=== PATIENT | female | born 1995 | race Two or more races ===

== ENCOUNTER 2017-02-23 16:32 | Emergency (ER) | payer MEDICAID ==
[~2017-02-23] VITALS: Ht 162.6 cm; Wt 88.5 kg
[2017-02-23 17:10] LABS: Urine Bilirubin Negative (Negative); Urine Blood 1+ /uL (Negative); Urine Color Yellow (Yellow); Urine Glucose Normal (Normal); Urine Ketone 4+ (Negative); Urine Mucus FEW (None Seen); Urine Nitrite Negative (Negative); Urine RBC 1 /hpf (0 - 4); Urine Squamous Epithelial Cell FEW /hpf (<5)
[2017-02-23 17:38] LABS: Basophils # (auto) 0 uL; Basophils % (auto) 0.1 % (0.0-2.0); CONDITION Y; Eosinophils # (auto) 0 uL; Eosinophils % (auto) 0.2 % (0.0-7.0); Hematocrit 43.4 % (36.0-46.0); Hemoglobin 14.8 g/dL (12.2-16.2); Lymphocytes # (auto) 1.5 uL; Lymphocytes % (auto) 10.7 % (10.0-50.0); Mean Corpuscular Hemoglobin 28.8 pg (28.0-32.0); Mean Corpuscular Volume 84.7 fL (80.0-100.0); Monocytes # (auto) 0.5 uL; Monocytes % (auto) 3.5 % (0.0-12.0); Neutrophils # (auto) 11.8 uL; Neutrophils % (auto) 85.5 % (37.0-80.0); Platelet Count (auto) 296 10^3/uL (140-450); Red Cell Distribution Width 12.7 % (11.6-16.0); White Blood Cell 13.9 10^3/uL (4.4-10.8)
[2017-02-23 18:02] LABS: Albumin 3.9 g/dL (3.4-5.0); BUN/Creatinine Ratio 23.5; Calcium 8.7 mg/dL (8.5-10.1); Potassium 3.5 mmol/L (3.5-5.1)
[2017-02-23 18:05] LABS: Bilirubin, Total 0.4 mg/dL (0.2-1.0); Total Protein 7.7 g/dL (6.4-8.2)
[2017-02-23] MEDS ORDERED: ONDANSETRON HCL 4 MG/2 ML VIAL IV ONE (21:15)
[2017-02-23] MEDS ORDERED: SODIUM CHLORIDE 0.9% 1,000 ML IV ONE (21:15)
[2017-02-23] MEDS ORDERED: KETOROLAC TROMETH 30 MG/ML 1ML VIAL IV ONE (21:15)
[2017-02-23] MEDS ORDERED: cefTRIAXone 1GM/50ML D5W 50 ML IV ONE (21:35)
[2017-02-23] MEDS ORDERED: cefTRIAXone SOD 1,000 MG VL IV ONE (21:45)
[2017-02-23 22:20] VITALS: BP 117/70
== END 2017-02-23 22:35 | disposition home or self-care (01) ==
LOC: ER 16:35
DX: N30.01 Acute cystitis with hematuria (principal); E86.0 Dehydration
CPT/HCPCS: 36415; 70450; 80053; 81001; 85025; 93005; 96361; 96374; 96375; 99285; J0696; J1885; J2405; J7030

== ENCOUNTER 2023-07-31 03:16 | Emergency (ER) | payer MEDICAID ==
[~2023-07-31] VITALS: Ht 160 cm; Wt 105.0 kg
[2023-07-31 04:29] LABS: Basophils # (auto) 0.1 10 ^3/uL (0-0.2); Basophils % (auto) 0.6 % (0.0-2.0); Eosinophils # (auto) 0.3 10 ^3/uL (0-0.8); Eosinophils % (auto) 2.5 % (0.0-7.0); Hematocrit 41.5 % (36.0-46.0); Hemoglobin 13.9 g/dL (12.2-16.2); Lymphocytes # (auto) 3.3 10 ^3/uL (0.4-5.4); Lymphocytes % (auto) 30.3 % (10.0-50.0); Mean Corpuscular Hemoglobin 28.4 pg (28.0-32.0); Mean Corpuscular Hgb Conc. 33.6 g/dL (32.0-36.0); Mean Corpuscular Volume 84.7 fL (80.0-100.0); Monocytes # (auto) 0.8 10 ^3/uL (0-1.3); Monocytes % (auto) 7.7 % (0.0-12.0); Neutrophils # (auto) 6.4 10 ^3/uL (1.6-8.6); Neutrophils % (auto) 58.9 % (37.0-80.0); White Blood Cell 10.8 10^3/uL (4.4-10.8)
[2023-07-31 04:47] LABS: Alanine Aminotransferase 24 U/L (7-40); Albumin 4.3 g/dL (3.2-4.8); Alkaline Phosphatase 93 U/L (46-116); Anion Gap 5 (5-15); Aspartate Aminotransferase 15 U/L (13-40); BUN/Creatinine Ratio 10.8 (10.0-20.0); Bilirubin, Total 0.2 mg/dL (0.2-1.0); Blood Urea Nitrogen 8 mg/dL (9-23); Carbon Dioxide 24 mmol/L (20-30); Chloride 109 mmol/L (98-107); Glucose 104 mg/dL (74-106); Lipase 36 U/L (12-53); Potassium 3.7 mmol/L (3.5-5.1); Sodium 138 mmol/L (136-145); Total Protein 6.9 g/dL (5.7-8.2)
[2023-07-31] MEDS ORDERED: DICYCLOMINE HCL (10MG/ML) 2 ML AMPULE IM ONE (07:00)
[2023-07-31] MEDS ORDERED: KETOROLAC TROMETH 60MG/2ML VIAL IM ONE (07:00)
[2023-07-31] MEDS ORDERED: ONDANSETRON ODT 4 MG TAB PO ONE (07:00)
[2023-07-31] MEDS ORDERED: KETOROLAC TROMETH 30 MG/ML 1ML VIAL ONE (07:36)
[2023-07-31] MEDS ORDERED: ONDANSETRON HCL 4 MG/2 ML VIAL ONE (07:36)
[2023-07-31] MEDS ORDERED: SODIUM CHLORIDE 0.9% 1,000 ML IV ONE (07:45)
[2023-07-31] MEDS ORDERED: ONDANSETRON HCL 4 MG/2 ML VIAL IV ONE (07:45)
[2023-07-31] MEDS ORDERED: KETOROLAC TROMETH 30 MG/ML 1ML VIAL IV ONE (07:45)
[2023-07-31 07:50] VITALS: BP 145/92; TEMP 98.3
[2023-07-31 08:24] VITALS: PULSE 7; RESP 18; O2SAT 98
[2023-07-31] MEDS ORDERED: DICY10CA PO (09:20)
[2023-07-31] MEDS ORDERED: NAPR-1334 PO (09:20)
[2023-07-31] MEDS ORDERED: ZOFR4T PO (09:20)
[2023-07-31 09:28] LABS: Urine Bacteria NONE SEEN /hpf (None Seen); Urine Blood Negative /uL (Negative); Urine Clarity Clear (Clear); Urine Protein, UAD Negative (Negative); Urine Urobilinogen Normal (Negative); Urine WBC <1 /hpf (0 - 5)
[2023-07-31 09:29] LABS: Urine Color STRAW (Yellow)
== END 2023-07-31 09:42 | disposition home or self-care (01) ==
LOC: ER 03:16 → EEVIPCON 03:16 → ER 09:42
DX: R10.13 Epigastric pain (principal); R10.2 Pelvic and perineal pain; R11.2 Nausea with vomiting, unspecified; R19.7 Diarrhea, unspecified
CPT/HCPCS: 36415; 76705; 80053; 81001; 83690; 84702; 85025; 96361; 96372; 96374; 96375; 99285; J0500; J1885; J2405; J7030

== ENCOUNTER → 2024-05-31 | Outpatient (CLI) | payer BC ==
[~2024-05-31] MED LIST: DICY10CA PO; NAPR-1335 PO; ZOFR4T PO
[2024-05-31 07:35] LABS: Urine Bacteria FEW /hpf (None Seen); Urine Blood Negative /uL (Negative); Urine Clarity Clear (Clear); Urine Color Colorless (Yellow); Urine Protein, UAD Negative (Negative); Urine Specific Gravity 1.005 (1.001-1.035); Urine Urobilinogen Normal (Negative); Urine WBC 1 /hpf (0 - 5); Urine pH 5.5 (5.0-9.0)
== END | disposition home or self-care (01) ==
LOC: LAB 06:24
PROVIDERS: ATTEND Nurse Practitioner
DX: N39.0 Urinary tract infection, site not specified (principal)
CPT/HCPCS: 81001; 87086

== ENCOUNTER → 2024-06-01 | Outpatient (CLI) | payer BC ==
[2024-06-02 06:06] LABS: HSV 1 IgG Antibody Reactive (Non Reactive); HSV 2 IgG Antibody Non Reactive (Non Reactive)
[2024-06-02 07:06] LABS: RPR Non Reactive (Non Reactive)
== END | disposition home or self-care (01) ==
LOC: LAB 08:10
PROVIDERS: ATTEND Nurse Practitioner
DX: Z11.3 Encounter for screening for infections with a predominantly sexual mode of transmission (principal); Z20.2 Contact with and (suspected) exposure to infections with a predominantly sexual mode of transmission
CPT/HCPCS: 86592; 86695; 86696; 86703

== ENCOUNTER → 2024-10-25 | Outpatient (CLI) | payer BC ==
[2024-10-25 11:28] LABS: Urine Blood 1+ /uL (Negative); Urine Clarity Clear (Clear); Urine Color Light-Yellow (Yellow); Urine Protein, UAD Negative (Negative); Urine Specific Gravity 1.017 (1.001-1.035); Urine Urobilinogen Normal (Negative); Urine pH 6.5 (5.0-9.0)
[2024-10-25 11:31] LABS: Basophils # (auto) 0 10 ^3/uL (0-0.2); Basophils % (auto) 0.6 % (0.0-2.0); Eosinophils # (auto) 0.1 10 ^3/uL (0-0.8); Eosinophils % (auto) 1.8 % (0.0-7.0); Hematocrit 45.4 % (36.0-46.0); Hemoglobin 15.2 g/dL (12.2-16.2); Lymphocytes # (auto) 2.6 10 ^3/uL (0.4-5.4); Lymphocytes % (auto) 33.6 % (10.0-50.0); Mean Corpuscular Hemoglobin 28.2 pg (28.0-32.0); Mean Corpuscular Hgb Conc. 33.4 g/dL (32.0-36.0); Mean Corpuscular Volume 84.6 fL (80.0-100.0); Monocytes # (auto) 0.6 10 ^3/uL (0-1.3); Monocytes % (auto) 7.6 % (0.0-12.0); Neutrophils # (auto) 4.3 10 ^3/uL (1.6-8.6); Neutrophils % (auto) 56.4 % (37.0-80.0); Nucleated Red Blood Cells % 0.2 %; Platelet Count (auto) 295 10^3/uL (140-450); Red Blood Cells 5.37 10^6/uL (4.0-5.20); White Blood Cell 7.6 10^3/uL (4.4-10.8)
[2024-10-25 11:45] LABS: Albumin 4.6 g/dL (3.2-4.8); Alkaline Phosphatase 101 U/L (46-116); Anion Gap 8 (5-15); Aspartate Aminotransferase 25 U/L (13-40); BUN/Creatinine Ratio 13.2 (10.0-20.0); Blood Urea Nitrogen 10 mg/dL (9-23); Calcium 9.6 mg/dL (8.7-10.4); Carbon Dioxide 25 mmol/L (20-31); Chloride 106 mmol/L (98-107); Glucose 87 mg/dL (74-106); Sodium 139 mmol/L (136-145); Total Protein 7.2 g/dL (5.7-8.2)
[2024-10-25 11:46] LABS: Bilirubin, Total 0.6 mg/dL (0.2-1.0); Cholesterol 169 mg/dL (< 200)
[2024-10-25 11:47] LABS: Alanine Aminotransferase 43 U/L (7-40); HDL Cholesterol 37 mg/dL (40-59); LDL Cholesterol 121 mg/dL (< 100); Triglycerides 155 mg/dL (< 150)
[2024-10-25 12:22] LABS: Hepatitis B Core Total AB Negative (Negative)
[2024-10-25 12:30] LABS: Hepatitis A Total Antibody Positive (Negative)
[2024-10-25 12:31] LABS: Hepatitis B Surface Antibody Positive (Negative); Hepatitis B Surface Antigen Negative (Negative); Hepatitis C Antibody Negative (Negative)
== END | disposition home or self-care (01) ==
LOC: LAB 10:45
PROVIDERS: ATTEND Nurse Practitioner Family
DX: Z11.3 Encounter for screening for infections with a predominantly sexual mode of transmission (principal); E55.9 Vitamin D deficiency, unspecified; K76.0 Fatty (change of) liver, not elsewhere classified; K21.9 Gastro-esophageal reflux disease without esophagitis; Z00.01 Encounter for general adult medical examination with abnormal findings; Z79.899 Other long term (current) drug therapy
CPT/HCPCS: 36415; 80053; 80061; 81003; 82306; 83036; 84443; 85025; 86703; 86704; 86706; 86708; 86780; 86803; 87340

== ENCOUNTER 2024-11-16 22:13 | Inpatient (IN) | payer BC ==
[~2024-11-16] VITALS: Ht 162.6 cm; Wt 106.4 kg
--- NOTE | 2024-11-16 23:04 | ED.PDOC ---
History of Present Illness HPI Comments 29-year-old female who came to ER with the neck pains. Patient has aching, intermittent right-sided neck pains for the past 2 weeks, aggravated with head movements. Earlier today, while at work, patient started experiencing dizziness, while seeing white spots. Blood pressure upon arrival was 113/81 mm Hg. She denies associated headache. She denies associated numbness, tingling weakness. Chief Complaint: Neck Pain Time Seen by MD: 23:03 Primary Care Provider: GERALDINE Lemon Notes: Nurses Notes Allergies: Coded Allergies: NO KNOWN ALLERGIES (Unverified , 04/09/14) Home Meds Active Scripts Naproxen Sodium (Naproxen) 220 Mg Tab, 220 MG PO BID for 7 Days, #14 TAB Prov:YAMILETH DUNN MD 07/31/23 Ondansetron Odt 4MG Tab (ZOFRAN PO) 4 Mg Tb, 4 MG PO TID for 7 Days, #21 TAB ODT TAB-DISSOLVE IN MOUTH, THEN SWALLOW Prov:YAMILETH DUNN MD 07/31/23 Dicyclomine Hcl (BENTYL CAPSULE) 10 Mg Cp, 1 CAP PO TID for 3 Days, #10 CAP 11 Refills Prov:YAMILETH DUNN MD 07/31/23 Reported Medications Pantoprazole Sodium Sesquihydr (Pantoprazole Sodium) 40 Mg Tab, 20 MG PO BID, TAB 11/17/24 Information Source: Patient Mode of Arrival: Ambulatory Severity: Moderate Timing: Hours Duration: Intermittent Review of Systems REVIEW OF SYSTEMS: No fever, no chills, or fatigue HEENT: No sore throat, no earache, no congestion, no neck pain. Cardiac: No chest pain. No palpitations. Lungs: No shortness of breath, no cough. GI: No nausea, no vomiting, no diarrhea, no constipation, no abdominal pain : No dysuria, frequency, or urgency. No hematuria. Musculoskeletal: No joint pain , no joint swelling, no extremity edema. (+) neck pain Skin: No rash, no itching. Neuro: No headache, (+) dizziness, no weakness Vital Signs Vital Signs Date Time Temp Pulse Resp B/P (MAP) Pulse Ox O2 Delivery O2 Flow Rate FiO2 11/17/24 01:00 98.6 75 14 99/61 (74) 100 98.6 11/17/24 01:00 Room Air* 0 21 Physical Exam General: Awake, alert and oriented. No acute distress. Skin: Skin in warm, dry and intact. Appropriate color for ethnicity. Nailbeds pink with no cyanosis. HEENT: The head is normocephalic and atraumatic. Conjunctivae are clear without exudates or hemorrhage. Sclera is non-icteric. EOM are intact. No signs of nystagmus. Eyelids are normal in appearance without swelling or lesions. Oral mucosa is pink and moist Neck: The neck is supple with normal range of motion. No JVD. Right lateral neck tenderness. Cardiac: Heart rate and rhythm are normal. No murmurs, gallops, or rubs are auscultated. Respiratory: No signs of respiratory distress. Lung sounds are clear in all lobes bilaterally without rales, rhonchi, or wheezes. Abdominal: Abdomen is soft, non-tender without distention. Bowel sounds are present and normoactive in all four quadrants. Extremities: Upper and lower extremities are atraumatic in appearance without deformity or edema. Right shoulder tenderness over the trapezius area. Neurological: The patient is awake, alert and oriented to person, place, and time with normal speech. Speech is clear. There is no facial asymmetry. Normal [id number] test. Upper and lower extremity strength intact with no drift. Normal tandem walk. Romberg positive. Psychiatric: Appropriate mood and affect. Good judgement and insight. Past Medical History PAST MEDICAL HISTORY: Anxiety, Depression, High Lipids Past Medical History (Other): PTSD Surgical History: Denies all surgeries TELEVISION SCHEDULE COORDINATOR History: No Pertinent TELEVISION SCHEDULE COORDINATOR History Family History Family History: Family hx of DM, Family hx of heart dalila Social History Smoker: Cigarettes, Less Than 1 Pack/Day Alcohol: Denies ETOH Use Drugs: Denies Drug Use Lives In: Home Was a procedure done? Was a procedure done?: No EKG EKG : Pulse Rate (adult): 76 Cardiac Rhythm: NSR Hypertrophy: LAE Differential Dx Considerations may include: Differential diagnoses considered include but are not limited to muscle spasm, cervical radiculopathy, cerebral aneurysm, carotid artery dissection, cardiac structural disease, arrhythmia, acute coronary syndrome, orthostasis, pulmonary embolism, dissection, seizure, basilar stroke, other. X-Ray, Labs, Meds, VS Vital Signs Date Time Temp Pulse Resp B/P (MAP) Pulse Ox O2 Delivery O2 Flow Rate FiO2 5/9/25 01:00 98.6 75 14 99/61 (74) 100 98.6 11/17/24 01:00 75 14 100 Room Air* 0 21 11/16/24 23:04 76 11/16/24 22:30 98.2 84 16 113/81 (92) 96 98.2 Lab Test 11/16/24 23:20 Range/Units White Blood Count 10.0 4.4-10.8 10^3/uL Red Blood Count 5.09 4.0-5.20 10^6/uL Hemoglobin 14.7 12.2-16.2 g/dL Hematocrit 42.7 36.0-46.0 % Mean Corpuscular Volume 83.9 80.0-100.0 fL Mean Corpuscular Hemoglobin 29.0 28.0-32.0 pg Mean Corpuscular Hemoglobin Concent 34.5 32.0-36.0 g/dL Red Cell Distribution Width 13.2 11.8-14.3 % Platelet Count 293 140-450 10^3/uL Mean Platelet Volume 8.6 6.9-10.8 fL Neutrophils (%) (Auto) 65.7 37.0-80.0 % Lymphocytes (%) (Auto) 25.8 10.0-50.0 % Monocytes (%) (Auto) 6.5 0.0-12.0 % Eosinophils (%) (Auto) 1.4 0.0-7.0 % Basophils (%) (Auto) 0.6 0.0-2.0 % Neutrophils # (Auto) 6.6 1.6-8.6 10 ^3/uL Lymphocytes # (Auto) 2.6 0.4-5.4 10 ^3/uL Monocytes # (Auto) 0.6 0-1.3 10 ^3/uL Eosinophils # (Auto) 0.1 0-0.8 10 ^3/uL Basophils # (Auto) 0.1 0-0.2 10 ^3/uL Nucleated Red Blood Cells 0.1 % Sodium Level 138 136-145 mmol/L Potassium Level 4.0 3.5-5.1 mmol/L Chloride Level 106 98-107 mmol/L Carbon Dioxide Level 22 20-31 mmol/L Anion Gap 10 5-15 Blood Urea Nitrogen 11 9-23 mg/dL Creatinine 0.66 0.550-1.02 mg/dL Glomerular Filtration Rate Calc 120 >90 mL/min BUN/Creatinine Ratio 16.7 10.0-20.0 Serum Glucose 88 74-106 mg/dL Calcium Level 9.1 8.7-10.4 mg/dL Total Bilirubin 0.3 0.2-1.0 mg/dL Aspartate Amino Transferase (AST) 17 13-40 U/L Alanine Aminotransferase (ALT) 36 7-40 U/L Alkaline Phosphatase 96 46-116 U/L Troponin I High Sensitivity < 3 L </=34 ng/L Total Protein 6.9 5.7-8.2 g/dL Albumin 4.6 3.2-4.8 g/dL Current Medications Medications (Trade) Dose Ordered Sig/Tai Route Start Time Stop Time Status Last Admin Sodium Chloride 1,000 ml @ 1,000 mls/hr Q1H ONCE IV 11/16/24 23:15 11/17/24 00:14 DC 11/17/24 01:12 Ketorolac Tromethamine (Toradol Injection) 15 mg ONCE ONCE IV 11/16/24 23:15 11/16/24 23:16 DC 11/17/24 01:11 Diazepam (Valium Tablet) 2 mg ONCE ONCE PO 11/16/24 23:15 11/16/24 23:16 DC 11/17/24 01:11 Ondansetron HCl (Zofran) 4 mg ONCE ONCE IV 11/16/24 23:15 11/16/24 23:16 DC 11/17/24 01:11 CHEST RADIOGRAPH Indication: Dizziness Technique: Single frontal view of the chest was obtained COMPARISON: None FINDINGS: Lines and Tubes: None Lungs: Clear Pleura: No effusion. No pneumothorax. Cardiomediastinal contours: Unremarkable IMPRESSION: No abnormality. Time of 1ST Reevaluation: 22:57 Reevaluation 1ST: Unchanged Patient Education/Counseling: Diagnosis, Treatment Family Education/Counseling: No Family Present Departure 1 Departure Time of Disposition: 02:48 Impression: Primary Impression: Dizziness Disposition: ADMITTED INPATIENT Condition: Stable Comments 29-year-old female who presents to the emergency department with headache, severe dizziness. Discussed with neurology. Recommendation is admit for MRI to rule out stroke. Patient admitted to hospitalist service for further treatment, evaluation and monitoring. Critical Care Note Critical Care Time?: No Stability Stability form required: No Heart Score Heart Score: Heart Score Response (Comments) Value History N/A 0 EKG N/A 0 Age N/A 0 Risk Factors N/A 0 Troponin N/A 0 Total 0 I personally scribed for LEI ISIDRO MD ([email or web address]) on 11/16/24 at 23:04. Electronically submitted by Nilson Aleman ([email or web address]). I personally scribed for LEI ISIDRO MD ([email or web address]) on 11/17/24 at 01:24. Electronically submitted by Nilson Aleman ([employer]). LEI ISIDRO MD November 16, 2024 23:04
[2024-11-16 23:41] LABS: Basophils # (auto) 0.1 10 ^3/uL (0-0.2); Basophils % (auto) 0.6 % (0.0-2.0); Eosinophils # (auto) 0.1 10 ^3/uL (0-0.8); Eosinophils % (auto) 1.4 % (0.0-7.0); Hematocrit 42.7 % (36.0-46.0); Hemoglobin 14.7 g/dL (12.2-16.2); Lymphocytes # (auto) 2.6 10 ^3/uL (0.4-5.4); Lymphocytes % (auto) 25.8 % (10.0-50.0); Mean Corpuscular Hgb Conc. 34.5 g/dL (32.0-36.0); Mean Corpuscular Volume 83.9 fL (80.0-100.0); Monocytes # (auto) 0.6 10 ^3/uL (0-1.3); Monocytes % (auto) 6.5 % (0.0-12.0); Neutrophils # (auto) 6.6 10 ^3/uL (1.6-8.6); Neutrophils % (auto) 65.7 % (37.0-80.0); Nucleated Red Blood Cells % 0.1 %; Platelet Count (auto) 293 10^3/uL (140-450); Red Blood Cells 5.09 10^6/uL (4.0-5.20); Red Cell Distribution Width 13.2 % (11.8-14.3)
[2024-11-16 23:57] LABS: Alanine Aminotransferase 36 U/L (7-40); Albumin 4.6 g/dL (3.2-4.8); Alkaline Phosphatase 96 U/L (46-116); Anion Gap 10 (5-15); Aspartate Aminotransferase 17 U/L (13-40); BUN/Creatinine Ratio 16.7 (10.0-20.0); Bilirubin, Total 0.3 mg/dL (0.2-1.0); Blood Urea Nitrogen 11 mg/dL (9-23); Calcium 9.1 mg/dL (8.7-10.4); Carbon Dioxide 22 mmol/L (20-31); Chloride 106 mmol/L (98-107); Sodium 138 mmol/L (136-145); Total Protein 6.9 g/dL (5.7-8.2)
[2024-11-17] VITALS (9 sets, daily range): BP systolic 106–127; BP diastolic 58–80; PULSE 66–89; RESP 14–20; TEMP 97.4–98.3; O2SAT 97–100
[2024-11-17 00:08] LABS: Glucose 88 mg/dL (74-106)
[2024-11-17] MEDS: IOHEXOL 350 MG/ML 100ML IJ ONE (00:14)
--- NOTE | 2024-11-17 00:51 | DVH ---
CHEST RADIOGRAPH Indication: Dizziness Technique: Single frontal view of the chest was obtained COMPARISON: None FINDINGS: Lines and Tubes: None Lungs: Clear Pleura: No effusion. No pneumothorax. Cardiomediastinal contours: Unremarkable IMPRESSION: No abnormality.
[2024-11-17] MEDS: diazePAM 2 MG TAB PO ONE (01:11)
[2024-11-17] MEDS: KETOROLAC TROMETH 30 MG/ML 1ML VIAL IV ONE (01:11)
[2024-11-17] MEDS: ONDANSETRON HCL 4 MG/2 ML VIAL IV ONE (01:11)
[2024-11-17] MEDS: SODIUM CHLORIDE 0.9% 1,000 ML IV ONE (01:12)
--- NOTE | 2024-11-17 01:58 | DVH ---
EXAM: CT ANGIO HEAD/NECK CLINICAL HISTORY: Dizziness, headache, neck pain TECHNIQUE: CT angiogram of the head and neck was performed without and with intravenous contrast. 3D MIP reconstructed images were created and archived on the PACS system. This exam was performed accord ing to our departmental dose optimization program. Up-to-date CT equipment and radiation dose reducti on techniques are utilized as appropriate. DLP 2053.65 COMPARISON: None FINDINGS: CTA head: The ventricles and subarachnoid spaces are normal in size and configuration. The rubio white matter in terfaces are maintained There is no midline shift or mass effect. There is no evidence of acute intra cranial hemorrhage. The basal cisterns are patent. The calvarium is intact. The distal internal carotid, vertebral, and basilar arteries are patent without focal narrowing or oc clusion. The anterior, middle, and posterior cerebral arteries are patent without focal narrowing. No aneurysm or arteriovenous malformation is identified. CTA neck: Common origin of the right brachiocephalic and left common carotid arteries, normal variant. The aort ic arch vessel origins are widely patent. Short segment marked narrowing of the distal left V2 segmen t (series 611 image 69 and series 7, image 116. The common carotid and cervical portions of the inter nal carotid and vertebral arteries are patent without focal narrowing according to NASCET criteria. N o aneurysm, AVM, or dissection is identified. The cervical soft tissues are unremarkable. The paranasal sinus and mastoid air cells are clear. The lung apices are clear. IMPRESSION: CTA head: 1. No acute intracranial abnormality. 2. Widely patent intracranial arteries without large vessel occlusion, significant stenosis, AVM, or AVM. CTA neck: 1. Short-segment marked stenosis of the distal left V2 segment. 2. Otherwise widely patent arteries in the neck.
--- NOTE | 2024-11-17 02:49 | BSKYNEURO ---
[facility] # Demographics Consult Type: General Neurology Patient Location: Emergency Room First Name: IAN Last Name: CHRISTIANO ARNOLD Date of : 1995 Age: 29 Gender: Female Facility: [facility] Time of Initial Page (): 11/17/2024 02:27 Time of Return Call (): 11/17/2024 02:28 # HPI Chief Complaint: - dizziness - neck pain History: 29-year-old female presents with dizziness, lightheadedness, and right-sided neck pain. The patient has been experiencing neck pain for the past two weeks, but the dizziness and lightheadedness began approximately 21:00 11/16/2024 The patient reports that the neck pain on the right side has been present for about two weeks. However, the pain worsened over the past several hours, coinciding with the onset of dizziness and lightheadedness. Describes it as a tunnel vision. CT angiography shows marked stenosis of distal left V2 segments. Neurology consulted for these findings. Last Known Normal: - 9 PM Associated Symptoms: - no head trauma - no recent trauma / no head trauma # Scores Time of exam and NIHSS (): 11/17/2024 02:42 Level of Consciousness 1a: [0] = Alert; keenly responsive LOC Questions 1b: [0] = Answers both questions correctly LOC Commands 1c: [0] = Performs both tasks correctly Best Gaze 2: [0] = Normal Visual 3: [0] = No visual loss Facial Palsy 4: [0] = Normal symmetrical movements Motor Arm Left 5a: [0] = No drift Motor Arm Right 5b: [0] = No drift Motor Leg Left 6a: [0] = No drift Motor Leg Right 6b: [0] = No drift Limb Ataxia 7: [0] = Absent Sensory 8: [0] = Normal Best Language 9: [0] = No aphasia Dysarthria 10: [0] = Normal Extinction and Inattention 11: [0] = No abnormality NIHSS Total: 0 # PMH-FH-SH Social History: - recently quit smoking - occasional alcohol - THC # Data Time Head CT personally read by me (): 11/17/2024 02:[address]: - no bleed - per radiologist read CTA Head: - no large vessel occlusion - per radiologist read # Assessment Impression: - Stroke-like symptoms. Given CTA findings, reasonable to get MRI Brain wo to r/o an acute stroke. No neurological deficits on exam. IF MRI is negative for an acute stroke, no further inpatient neurological work-up warranted. # Plan Thrombolytic/Intervention: NOT IV Thrombolysis or IA Intervention candidate Thrombolytic Exclusion: > 4.5 hours Intraarterial Exclusion: - no large vessel occlusion (LVO) Labs: - urine drug screen - ua - TSH - CBC - comprehensive metabolic panel Imaging: (urgency: routine): - MRI Brain without contrast Medication: - aspirin 81 mg daily - start statin with goal of LDL < 70 DVT Prophylaxis: - chemical DVT prophylaxis Other: - If patient has any neurological deterioration please call me back immediately - I have discussed my recommendations with the referring provider - would not pursue stroke work-up if MRI is negative - Allow for permissive HTN (up to 220/110 mmHg) until MRI brain wo rules out a stroke. Additional Recommendations: - Please call back [facility] or in-house neurology if MRI shows an acute infarct for additional recommendations Disposition: observation # Demographics First Name: IAN Last Name: CHRISTIANO ARNOLD Facility: [facility] Yes DIONE ISAAC MD November 17, 2024 02:49
--- NOTE | 2024-11-17 03:20 | DVHHP2 ---
History of Present Illness Reason for Visit: rule out stroke History of Present Illness 29-year-old female with a history of anxiety, depression, and hyperlipidemia who presented with 2 weeks of intermittent, aching, right-sided neck pain, aggravated by head movement. On the day of admission, while at work, she developed acute dizziness and lightheadedness described as "tunnel vision" around 9 PM. She denied recent trauma or head injury. CTA revealed short-segment marked stenosis of the distal left V2 segment. No signs of acute infarct on head CT. Neurology was consulted, and MRI brain without contrast was ordered to rule out stroke. Also MRA of head and neck due to possible Vertebrobasilar insufficiency. She was started on aspirin and a statin for secondary prevention. Past Medical History: Anxiety Depression Hyperlipidemia Past Surgical History: Denies any prior surgeries Gynecologic History: LMP 1 month ago Family History: Family history of diabetes and heart disease Social History: Smokes less than 1 pack/day: quit recently Denies alcohol or drug use Lives at home Review of Systems Review of Systems Constitutional: No fever, chills, or fatigue HEENT: No sore throat, earache, congestion; neck pain present Cardiovascular: No chest pain or palpitations Respiratory: No dyspnea or cough GI: No nausea, vomiting, or changes in bowel habits : No urinary symptoms MSK: No joint swelling, but right-sided neck pain Neuro: (+) dizziness, (-) weakness Psych: No hallucinations, judgment and insight intact Allergies: Coded Allergies: NO KNOWN ALLERGIES (Unverified , 04/09/14) Medications Current Medications Medications Dose Ordered Sig/Tai Route Start Time Stop Time Status Last Admin Dose Admin Acetaminophen 650 mg Q6HP PRN PO 11/17/24 03:15 Exam Vital Signs Vital Signs Date Time Temp Pulse Resp B/P (MAP) Pulse Ox O2 Delivery O2 Flow Rate FiO2 11/17/24 01:00 98.6 75 14 99/61 (74) 100 98.6 11/17/24 01:00 Room Air* 0 21 Exam General: Alert and oriented x3, no acute distress HEENT: Normocephalic, atraumatic, EOMI, no nystagmus, conjunctivae clear, oropharynx moist Neck: Supple, normal ROM, no JVD Cardiovascular: Regular rhythm, no murmurs or rubs Respiratory: Clear breath sounds bilaterally GI: Soft, non-tender, non-distended, bowel sounds present Extremities: No edema, no deformities Neuro: Alert and oriented x3, normal speech and strength, NIHSS = 0 Psych: Appropriate mood and affect Labs/Xrays Labs Test 11/16/24 23:20 Range/Units White Blood Count 10.0 4.4-10.8 10^3/uL Red Blood Count 5.09 4.0-5.20 10^6/uL Hemoglobin 14.7 12.2-16.2 g/dL Hematocrit 42.7 36.0-46.0 % Mean Corpuscular Volume 83.9 80.0-100.0 fL Mean Corpuscular Hemoglobin 29.0 28.0-32.0 pg Mean Corpuscular Hemoglobin Concent 34.5 32.0-36.0 g/dL Red Cell Distribution Width 13.2 11.8-14.3 % Platelet Count 293 140-450 10^3/uL Mean Platelet Volume 8.6 6.9-10.8 fL Neutrophils (%) (Auto) 65.7 37.0-80.0 % Lymphocytes (%) (Auto) 25.8 10.0-50.0 % Monocytes (%) (Auto) 6.5 0.0-12.0 % Eosinophils (%) (Auto) 1.4 0.0-7.0 % Basophils (%) (Auto) 0.6 0.0-2.0 % Neutrophils # (Auto) 6.6 1.6-8.6 10 ^3/uL Lymphocytes # (Auto) 2.6 0.4-5.4 10 ^3/uL Monocytes # (Auto) 0.6 0-1.3 10 ^3/uL Eosinophils # (Auto) 0.1 0-0.8 10 ^3/uL Basophils # (Auto) 0.1 0-0.2 10 ^3/uL Nucleated Red Blood Cells 0.1 % Sodium Level 138 136-145 mmol/L Potassium Level 4.0 3.5-5.1 mmol/L Chloride Level 106 98-107 mmol/L Carbon Dioxide Level 22 20-31 mmol/L Anion Gap 10 5-15 Blood Urea Nitrogen 11 9-23 mg/dL Creatinine 0.66 0.550-1.02 mg/dL Glomerular Filtration Rate Calc 120 >90 mL/min BUN/Creatinine Ratio 16.7 10.0-20.0 Serum Glucose 88 74-106 mg/dL Calcium Level 9.1 8.7-10.4 mg/dL Total Bilirubin 0.3 0.2-1.0 mg/dL Aspartate Amino Transferase (AST) 17 13-40 U/L Alanine Aminotransferase (ALT) 36 7-40 U/L Alkaline Phosphatase 96 46-116 U/L Troponin I High Sensitivity < 3 L </=34 ng/L Total Protein 6.9 5.7-8.2 g/dL Albumin 4.6 3.2-4.8 g/dL Assessment/Plan Assessment/Plan 29-year-old female with dizziness and right-sided neck pain, with CTA showing distal left V2 segment stenosis. No acute stroke on CT. Neurology recommends MRI brain for further evaluation, MRA of head neck ordered as well. Currently neurologically intact. #Rule out stroke #Possible Vertebrobasilar insufficiency #Possible Cervical spondylosis #Musculoskeletal neck pain #Possible Vertigo (central vs peripheral) #H/o anxiety and depression #Hyperlipidiemia Plan: Admit Medsurg MRI brain w/o contrast MRA of head and neck Aspirin 81 mg daily Atorvastatin 40 mg Monitor neuro status; permissive HTN allowed (SBP <220) Call neurology if MRI positive or patient deteriorates Case discussed with Dr Andersen Plan discussed with: Patient, Other (rn) My Orders Orders - MARIAH BRUNO RESIDENT Procedure Category Date Status Time Admit ADMIT 11/17/24 Transmitted 03:14 Code Status CODE 11/17/24 Transmitted 03:14 Vital Signs [facility] 11/17/24 In Process 03:14 Review Orders With [facility] 11/17/24 In Process Adm. 03:14 Regular Diet DIET 11/17/24 Transmitted Breakfast Acetaminophen Tablet [facility] 11/17/24 In Process (Tylenol Tablet) 03:15 Notify Md Of Changes [facility] 11/17/24 In Process From Base 03:14 Advance Directive [facility] 11/17/24 In Process 03:14 Patient Condition ORDERS 11/17/24 Transmitted 03:14 Allergies [facility] 11/17/24 In Process 03:14 Date of Service: November 17, 2024 Billing Provider: VIRI ANDERSEN MD Common Visit Codes: 08064-KCEXFSL INP/OBS CARE (HIGH) Secondary Visit Codes: 14179-[id number] CARE PLAN 30 MINUTES MARIAH BRUNO RESIDENT November 17, 2024 03:20
[2024-11-17] MEDS: CYCLOBENZAPRINE HCL 10 MG TAB PO PRN (04:30)
[2024-11-17] MEDS ORDERED: PANT40T PO (04:36)
[2024-11-17 06:11] LABS: Urine Bacteria FEW /hpf (None Seen); Urine Blood Negative /uL (Negative); Urine Clarity Clear (Clear); Urine Color Light-Yellow (Yellow); Urine Protein, UAD TRACE (Negative); Urine Squamous Epithelial Cell FEW /hpf (<5); Urine Urobilinogen Normal (Negative); Urine WBC 14 /HPF (0-5); Urine pH 6.5 (5.0-9.0)
[2024-11-17 06:19] LABS: Urine Specific Gravity > 1.050 (1.001-1.035)
[2024-11-17 08:37] LABS: Basophils # (auto) 0.1 10 ^3/uL (0-0.2); Basophils % (auto) 0.7 % (0.0-2.0); Eosinophils # (auto) 0.2 10 ^3/uL (0-0.8); Eosinophils % (auto) 1.6 % (0.0-7.0); Hematocrit 40.7 % (36.0-46.0); Hemoglobin 13.6 g/dL (12.2-16.2); Lymphocytes # (auto) 3.5 10 ^3/uL (0.4-5.4); Lymphocytes % (auto) 33.6 % (10.0-50.0); Mean Corpuscular Hemoglobin 28.3 pg (28.0-32.0); Mean Corpuscular Hgb Conc. 33.3 g/dL (32.0-36.0); Monocytes # (auto) 0.8 10 ^3/uL (0-1.3); Monocytes % (auto) 7.7 % (0.0-12.0); Neutrophils # (auto) 5.9 10 ^3/uL (1.6-8.6); Neutrophils % (auto) 56.4 % (37.0-80.0); Nucleated Red Blood Cells % 0.1 %; Platelet Count (auto) 277 10^3/uL (140-450); Red Blood Cells 4.79 10^6/uL (4.0-5.20); Red Cell Distribution Width 12.8 % (11.8-14.3); White Blood Cell 10.4 10^3/uL (4.4-10.8)
--- NOTE | 2024-11-17 08:45 | DVH ---
EXAMINATION: MRI BRAIN HEAD WO CONTRAST INDICATION: rule out stroke COMPARISON: None TECHNIQUE: Multiplanar, multisequence magnetic resonance imaging of the brain was performed without the use of i ntravenous contrast. FINDINGS: No evidence of acute or remote infarct. No intracranial hemorrhage. No mass effect. There is periventricular/deep white matter T2/FLAIR hyperintensity is nonspecific, but most commonly associated with chronic microvascular disease. The ventricles and sulci are normal in size for age. Clear basal cisterns. Flow voids in the major intracranial vessels are maintained. No abnormality of the orbits. Paranasal sinuses and mastoid air cells are clear. No abnormality of the visualized osseous structures and extracranial soft tissues. IMPRESSION: No acute infarct, intracranial hemorrhage, mass effect, or hydrocephalus.
--- NOTE | 2024-11-17 08:50 | DVH ---
PROCEDURE: MRI MRA ANGIO HEAD BRAIN INDICATION: stenosis of the vertebral artery Exam Date: 11/17/2024 07:38 AM COMPARISON: None TECHNIQUE: MRA head without and with intravenous contrast. MRA neck without and with intravenous contrast. 3D image postprocessing was performed on a dedicated workstation and images were used for interpretat ion and reporting. FINDINGS: MRA head: There is preserved enhancement within the bilateral distal internal carotid arteries. There is prese rved enhancement within the anterior and middle cerebral arteries. There is preserved enhancement wi thin the vertebral arteries, basilar artery, cerebellar arteries and posterior cerebral arteries. Th ere is no evidence of hemodynamically significant intracranial stenosis, proximal occlusion or aneury sm. No abnormal venous signal is seen. MRA neck: The visualized thoracic aortic arch and proximal great vessels are unremarkable. There is no evidenc e of hemodynamically significant stenosis involving the bilateral common and internal carotid arterie s. The cervical vertebral arteries are patent. There is no evidence of dissection. Short-segment marked stenosis of the distal left V2 segment. IMPRESSION: No evidence of hemodynamically significant intracranial stenosis, proximal occlusion or aneurysm. Short-segment marked stenosis of the distal left V2 segment. CAROTID STENOSIS REFERENCE Distal internal carotid artery diameter as the denominator for stenosis measurement: MILD = <50% stenosis. MODERATE = 50-69% stenosis. SEVERE = 70-89% stenosis. CRITICAL = 90-99% stenosis. OCCLUDED = 100% stenosis.
[2024-11-17 08:54] LABS: Alanine Aminotransferase 31 U/L (7-40); Albumin 4.1 g/dL (3.2-4.8); Alkaline Phosphatase 82 U/L (46-116); Anion Gap 7 (5-15); Aspartate Aminotransferase 16 U/L (13-40); BUN/Creatinine Ratio 17.3 (10.0-20.0); Bilirubin, Total 0.4 mg/dL (0.2-1.0); Blood Urea Nitrogen 14 mg/dL (9-23); Calcium 9.3 mg/dL (8.7-10.4); Carbon Dioxide 26 mmol/L (20-31); Chloride 106 mmol/L (98-107); Cholesterol 149 mg/dL (< 200); Glucose 86 mg/dL (74-106); Potassium 4.1 mmol/L (3.5-5.1); Sodium 139 mmol/L (136-145); Total Protein 6.5 g/dL (5.7-8.2)
[2024-11-17 08:55] LABS: Thyroid Stimulating Hormone 1.2 uIU/mL (0.55-4.78)
[2024-11-17 08:59] LABS: Beta HCG, Quantitative 0.3 mIU/mL (1.5-4.2); Triglycerides 196 mg/dL (< 150)
[2024-11-17 09:07] LABS: LDL Cholesterol 101 mg/dL (< 100)
[2024-11-17] MEDS: ASPirin 81 mg TAB PO SCH (09:26)
[2024-11-17] MEDS: ACETAMINOPHEN 325 MG TAB PO PRN (09:27)
[2024-11-17 09:34] LABS: HDL Cholesterol 34 mg/dL (40-59)
--- NOTE | 2024-11-17 14:13 | ECG ---
[facility] Test Date: 2024-11-16 Test Time: 22:42:22 Pat Name: IAN ARNOLD Department: ER Room: 0239 A Gender: F [employer]icon[employer] Technician: RIGO : 1995 Requested By: LEI ISIDRO Order Number: [id number] Reading MD: Measurements Intervals [place] Rate: 76 P: 25 [place]: 165 QRS: 38 QRSD: 101 T: 38 QT: 368 QTc: 414 Interpretive Statements Sinus rhythm Probable left atrial enlargement RSR' in V1 or V2, probably normal variant ST elevation suggests acute pericarditis Baseline wander in lead(s) I,aVL Please click the below link to view image of tracing.
[2024-11-17] MEDS: ATORVASTATIN 20 MG TAB PO SCH (21:04)
--- NOTE | 2024-11-17 22:25 | DVHINCON2 ---
Date of service: November 17, [address] Yoder Reason for Consultation Blurry vision/tunnel vision for less than 1 hour History of Present Illness Ms. Simran Menjivar is a 29 years old right-handed female with a history of dyslipidemia, anxiety, PTSD, depression, obesity, she came to the [facility] on 11/16/2024 with a chief complaint of vision disturbance. At this time, she is alert and fully oriented, she provided the following history Over the last weeks, she has fluctuating neck pain, up to 10/10, and down to 5/10 with Tylenol and topical gel treatment On 11/16/2024, with he was walking in the hallway in the [facility], she developed tunnel vision, mildly blurry and she also saw spots, he was had a mild dizziness, but she did not have confusion, or loss of consciousness. She walked to the emergency room and was admitted. She reports all her vision disturbance resolved in about 5 hours About two years ago, she had similar neck pain when she was under lot of stress, she was treated in the [facility] with symptoms resolved CTA and MRA showed stenosis of the distal left V2 segment Urinalysis, 11/17/2024: WBC: Photic, urine leukocyte esterase: Trace CBC, 11/17/2024: Unremarkable CMP, 11/17/2024: Unremarkable TG/HDL/LDL/HDL, 11/17/2024: 196/149/I01/34 TSH, 11/17/2024: 1.2 CTA head, 11/17/2024: 1. No acute intracranial abnormality. 2. Widely patent intracranial arteries without large vessel occlusion, significant stenosis, AVM, or AVM. CTA neck, 11/17/2024: 1. Short-segment marked stenosis of the distal left V2 segment. 2. Otherwise widely patent arteries in the neck MRI head 11/17/2024: No acute infarct, intracranial hemorrhage, mass effect, or hydrocephalus MRA head, neck, 11/17/2024: No evidence of hemodynamically significant intracra nial stenosis, proximal occlusion or aneurysm. Short-segment marked stenosis of the distal left V2 segment. Past Medical History Dyslipidemia, anxiety, PTSD, depression, obesity Past Surgical History Appendectomy Family History: FH: lupus G8 MOTHER Fatty liver G8 FATHER Hypertension G8 MOTHER Family History Hypertension, heart disease, lupus, anxiety, depression Social History She was a tobacco smoker, but no history of alcohol or drug abuse Allergies: Coded Allergies: NO KNOWN ALLERGIES (Unverified , 04/09/14) Home Meds Active Scripts Naproxen Sodium (Naproxen) 220 Mg Tab, 220 MG PO BID for 7 Days, #14 TAB Prov:YAMILETH DUNN MD 07/31/23 Ondansetron Odt 4MG Tab (ZOFRAN PO) 4 Mg Tb, 4 MG PO TID for 7 Days, #21 TAB ODT TAB-DISSOLVE IN MOUTH, THEN SWALLOW Prov:YAMILETH DUNN MD 07/31/23 Dicyclomine Hcl (BENTYL CAPSULE) 10 Mg Cp, 1 CAP PO TID for 3 Days, #10 CAP 11 Refills Prov:YAMILETH DUNN MD 07/31/23 Reported Medications Pantoprazole Sodium Sesquihydr (Pantoprazole Sodium) 40 Mg Tab, 20 MG PO BID, TAB 11/17/24 Current Medications Current Medications Medications (Trade) Dose Ordered Sig/Tai Route PRN Reason Start Time Stop Time Status Last Admin Acetaminophen (Tylenol Tablet) 650 mg Q6HP PRN PO PAIN SCALE 1-3 OR TEMP>100.4 11/17/24 03:15 11/17/24 09:27 Cyclobenzaprine HCl (Flexeril Tablet) 5 mg Q8HPRN PRN PO FOR MUSCLE SPASM 11/17/24 03:45 11/17/24 21:05 Aspirin 81 mg DAILY PO 11/17/24 10:00 11/17/24 09:26 Atorvastatin Calcium (Lipitor) 40 mg HS PO 11/17/24 22:00 11/17/24 21:04 Review of Systems As above, the other systems are negative Vital Signs Vital Signs Date Time Temp Pulse Resp B/P (MAP) Pulse Ox O2 Delivery O2 Flow Rate FiO2 11/17/24 20:00 80 18 99 Room Air* 0 21 11/17/24 16:16 97.6 107/58 (74) 97.6 Physical Exam GENERAL EXAM: General: the patient is well developed and nourished. No acute distress. HEENT: Normocephalic, neck is supple, no carotid bruits. No mass. RESPIRATORY: Normal respiratory effort with symmetrical lung expansion. Lungs clear to auscultation. CARDIOVASCULAR: Regular rate and rhythm with no murmurs. S1, S2. ABDOMEN: Soft, nontender, normal bowel sound MUSCULOSKELETAL EXAM: No pain in the knees NEUROLOGICAL: MENTAL STATUS: Awake and alert. Oriented to person, place, time and general circumstances. Able to give personal history. SPEECH, LANGUAGE, HIGHER CORTICAL FUNCTION: no aphasia or dysathria. CRANIAL NERVES: #2: Intact visual mason to confrontation. The optic discs were sharp. #3,4,6: Pupils are equal, round and reactive. EOMs full and conjugate. No nystagmus. #5: Facial sensation intact in all three divisions bilaterally. Mandibular strength intact. #7: Facial muscles symmetrical and strength intact. #8: Hearing grossly normal to voice. #9,10: Uvula and soft palate rise in the midline. Swallow and voice are normal. #11: Trapezius and sternomastoid strength intact bilaterally. #12: Tongue midline. No fasciculations or atrophy. SENSATION: Sensation to touch and pinprick is normal. MOTOR: Normal tone in the upper and lower extremity. Normal muscle bulk. No fasciculations. No abnormal movements or posturing. Muscle strength of the major groups in the upper extremities is 5/5. Muscle strength of the major groups in the lower extremities is 5/5. REFLEXES: Deep tendon reflexes normal and symmetrical. No pathological reflexes. CEREBELLAR/COORDINATION: Finger to nose and heel to cool are normal bilaterally. GAIT/STATION: deferred. Labs/Diagnostic Data Labs Test 11/17/24 08:22 11/17/24 05:30 11/16/24 23:20 Range/Units White Blood Count 10.4 4.4-10.8 10^3/uL Red Blood Count 4.79 4.0-5.20 10^6/uL Hemoglobin 13.6 12.2-16.2 g/dL Hematocrit 40.7 36.0-46.0 % Mean Corpuscular Volume 85.0 80.0-100.0 fL Mean Corpuscular Hemoglobin 28.3 28.0-32.0 pg Mean Corpuscular Hemoglobin Concent 33.3 32.0-36.0 g/dL Red Cell Distribution Width 12.8 11.8-14.3 % Platelet Count 277 140-450 10^3/uL Mean Platelet Volume 8.4 6.9-10.8 fL Neutrophils (%) (Auto) 56.4 37.0-80.0 % Lymphocytes (%) (Auto) 33.6 10.0-50.0 % Monocytes (%) (Auto) 7.7 0.0-12.0 % Eosinophils (%) (Auto) 1.6 0.0-7.0 % Basophils (%) (Auto) 0.7 0.0-2.0 % Neutrophils # (Auto) 5.9 1.6-8.6 10 ^3/uL Lymphocytes # (Auto) 3.5 0.4-5.4 10 ^3/uL Monocytes # (Auto) 0.8 0-1.3 10 ^3/uL Eosinophils # (Auto) 0.2 0-0.8 10 ^3/uL Basophils # (Auto) 0.1 0-0.2 10 ^3/uL Nucleated Red Blood Cells 0.1 % Sodium Level 139 136-145 mmol/L Potassium Level 4.1 3.5-5.1 mmol/L Chloride Level 106 98-107 mmol/L Carbon Dioxide Level 26 20-31 mmol/L Anion Gap 7 5-15 Blood Urea Nitrogen 14 9-23 mg/dL Creatinine 0.81 0.550-1.02 mg/dL Glomerular Filtration Rate Calc 99 >90 mL/min BUN/Creatinine Ratio 17.3 10.0-20.0 Serum Glucose 86 74-106 mg/dL Calcium Level 9.3 8.7-10.4 mg/dL Total Bilirubin 0.4 0.2-1.0 mg/dL Aspartate Amino Transferase (AST) 16 13-40 U/L Alanine Aminotransferase (ALT) 31 7-40 U/L Alkaline Phosphatase 82 46-116 U/L Total Protein 6.5 5.7-8.2 g/dL Albumin 4.1 3.2-4.8 g/dL Triglycerides Level 196 H < 150 mg/dL Cholesterol Level 149 < 200 mg/dL LDL Cholesterol 101 H < 100 mg/dL HDL Cholesterol 34 L 40-59 mg/dL Thyroid Stimulating Hormone (TSH) 1.20 0.55-4.78 uIU/mL Beta HCG, Quantitative 0.3 L 1.5-4.2 mIU/mL Urine Color Light-yellow Yellow Urine Clarity Clear Clear Urine pH 6.5 5.0-9.0 Urine Specific [place] > 1.050 H 1.001-1.035 Urine Protein Trace H Negative Urine Ketones Negative Negative Urine Blood Negative Negative /uL Urine Nitrite Negative Negative Urine Bilirubin Negative Negative Urine Urobilinogen Normal Negative mg/dL Urine Leukocyte Esterase Trace Negative /uL Urine RBC 7 0 - 4 /hpf Urine Microscopic WBC 14 H 0-5 /HPF Urine Squamous Epithelial Cells Few <5 /hpf Urine Bacteria Few H None Seen /hpf Urine Glucose Normal Normal mg/dL Troponin I High Sensitivity < 3 L </=34 ng/L Assessment Acute vision disturbance, resolved, MR brain was unremarkable, I question an anxiety attack Neck pain, better now Left V2 stenosis Plan/Recommendation Monitoring Supportive treatment Telemetry Current pain management I recommend aspirin 81 mg q.d., Lipitor 40 mg daily for the Left V2 stenosis I have discussed with her Re: Consult stroke specialist Re: Left V2 stenosis Okay to discharge from a neurologic point of view Plan discussed with: Patient, Other MARCEL MCCARTHY MD November 17, 2024 22:24
[2024-11-17] MEDS ORDERED: TRAZ-227 PO (22:40)
[2024-11-17] MEDS ORDERED: MECL1TAB42 PO (22:40)
== END 2024-11-17 23:30 | disposition home or self-care (01) | DRG 552 ==
LOC: EEVIPCON 22:13 → ER 22:13 → OVERFLOW 11-17 03:14 → EAST 11-17 04:48
PROVIDERS: ADMIT Student in an Organized Health Care Education/Training Program; ATTEND Student in an Organized Health Care Education/Training Program
DX: M47.892 Other spondylosis, cervical region (principal); G45.0 Vertebro-basilar artery syndrome; Z68.41 Body mass index [BMI] 40.0-44.9, adult; F43.10 Post-traumatic stress disorder, unspecified; F17.210 Nicotine dependence, cigarettes, uncomplicated; E78.5 Hyperlipidemia, unspecified; F41.9 Anxiety disorder, unspecified; F32.A Depression, unspecified; H53.9 Unspecified visual disturbance; E66.9 Obesity, unspecified; Z79.899 Other long term (current) drug therapy; Z83.3 Family history of diabetes mellitus; Z82.49 Family history of ischemic heart disease and other diseases of the circulatory system; Z81.8 Family history of other mental and behavioral disorders
CPT/HCPCS: 36415; 70496; 70498; 70545; 70547; 70551; 71045; 80053; 80061; 81001; 84443; 84484; 84702; 85025; 93005; 96361; 96374; 96375; G0378; J1885; J2405

== ENCOUNTER 2025-01-15 10:20 | Outpatient (CLI) | payer BC ==
[~2025-01-15 10:20] MED LIST changes: +MECL1TAB42 PO; +PANT40T PO; +TRAZ-227 PO
[2025-01-15 10:47] LABS: Hematocrit 44.3 % (36.0-46.0); Hemoglobin 15.0 g/dL (12.2-16.2); Mean Corpuscular Hemoglobin 28.4 pg (28.0-32.0); Mean Corpuscular Volume 83.6 fL (80.0-100.0); Nucleated Red Blood Cells % 0.0 %
[2025-01-15 10:48] LABS: Urine Protein, UAD Negative (Negative)
[2025-01-15 11:08] LABS: Alkaline Phosphatase 84 U/L (46-116); Calcium 9.9 mg/dL (8.7-10.4); Carbon Dioxide 25 mmol/L (20-31); Chloride 105 mmol/L (98-107)
[2025-01-15 11:09] LABS: Alanine Aminotransferase 41 U/L (7-40); Albumin 4.4 g/dL (3.2-4.8); Anion Gap 9 (5-15); BUN/Creatinine Ratio 14.5 (10.0-20.0); Blood Urea Nitrogen 11 mg/dL (9-23); Glucose 86 mg/dL (74-106); Potassium 4.1 mmol/L (3.5-5.1); Sodium 139 mmol/L (136-145); Total Protein 6.9 g/dL (5.7-8.2); Triglycerides 151 mg/dL (< 150)
[2025-01-15 11:10] LABS: Bilirubin, Total 0.5 mg/dL (0.2-1.0); Cholesterol 166 mg/dL (< 200); HDL Cholesterol 38 mg/dL (40-59)
== END 2025-01-15 17:00 | disposition home or self-care (01) ==
LOC: LAB 10:20
PROVIDERS: ATTEND Nurse Practitioner Family
DX: E78.5 Hyperlipidemia, unspecified (principal); E55.9 Vitamin D deficiency, unspecified; R79.9 Abnormal finding of blood chemistry, unspecified
CPT/HCPCS: 36415; 80053; 80061; 81001; 83036; 85025

== ENCOUNTER → 2025-06-28 | Outpatient (CLI) | payer BC ==
[2025-06-28 11:06] LABS: Hematocrit 43.4 % (36.0-46.0); Hemoglobin 14.5 g/dL (12.2-16.2); Mean Corpuscular Hemoglobin 28.3 pg (28.0-32.0); Mean Corpuscular Volume 84.6 fL (80.0-100.0); Nucleated Red Blood Cells % 0.0 %
[2025-06-28 11:07] LABS: Urine Protein, UAD Negative (Negative)
[2025-06-28 11:22] LABS: Iron 78.0 ug/dL (50-170)
[2025-06-28 11:25] LABS: Total Iron Binding Capacity 311.0 ug/dL (250-425)
[2025-06-28 11:26] LABS: Alanine Aminotransferase 31 U/L (7-40); Albumin 4.5 g/dL (3.2-4.8); Alkaline Phosphatase 111 U/L (46-116); Anion Gap 9 (5-15); BUN/Creatinine Ratio 9.5 (10.0-20.0); Bilirubin, Total 0.5 mg/dL (0.2-1.0); Blood Urea Nitrogen 8 mg/dL (9-23); Calcium 9.6 mg/dL (8.7-10.4); Carbon Dioxide 26 mmol/L (20-31); Chloride 104 mmol/L (98-107); Cholesterol 160 mg/dL (< 200); Glucose 88 mg/dL (74-106); HDL Cholesterol 43 mg/dL (40-59); Potassium 3.8 mmol/L (3.5-5.1); Sodium 139 mmol/L (136-145); Total Protein 7.3 g/dL (5.7-8.2); Triglycerides 99 mg/dL (< 150)
[2025-06-28 11:29] LABS: Ferritin 64.8 ng/mL (10-291)
== END | disposition home or self-care (01) ==
LOC: LAB 10:31
PROVIDERS: ATTEND Nurse Practitioner Family
DX: E78.5 Hyperlipidemia, unspecified (principal); E55.9 Vitamin D deficiency, unspecified; R20.2 Paresthesia of skin
CPT/HCPCS: 36415; 80053; 80061; 81001; 82306; 82607; 82728; 83036; 83540; 83550; 84443; 85025